=== PATIENT | female | born 1965 | race Caucasian/White ===

== ENCOUNTER → 2017-03-07 | Outpatient (CLI) | payer BC ==
[~2017-03-07] VITALS: Ht 168.9 cm; Wt 61.0 kg
[~2017-03-07] MED LIST: AMLODIPINE BESYL5 MG PO; ANTIVERT25 MG PO; ARYMO ER15 MG PO; CALCIUM 600 +1 EAC4 PO; CITALOPRAM HBR20 MG PO; DELTASONE20 M1 PO; DURAGESIC25 MCG TD; GUMMIES CHILDR1 EACH PO; NEURONTIN300 MG PO; NEURONTIN600 MG PO; NORVASC10 MG PO; ONE DAILY FOR1 EAC1 PO; PERCOCET 5/31 TABLET PO; TRIAMTERENE-HC1 EACH PO; ZOVIRAX800 M1 PO
[2017-03-07 10:01] VITALS: BP 124/67
== END | disposition home or self-care (01) ==
LOC: IVINF 09:27
DX: M81.0 Age-related osteoporosis without current pathological fracture (principal); Z88.0 Allergy status to penicillin; Z88.5 Allergy status to narcotic agent
CPT/HCPCS: J3489

== ENCOUNTER → 2018-05-15 | Outpatient (CLI) | payer BC ==
[~2018-05-15] VITALS: Ht 167.6 cm; Wt 61.3 kg
[~2018-05-15] MED LIST changes: +DYRENIUM 50 MG50 MG PO; +FLEXERIL5 MG PO; +PENNSAID2 GM TP
[2018-05-15 11:52] VITALS: BP 130/84
== END | disposition home or self-care (01) ==
LOC: IVINF 11:00
DX: M81.0 Age-related osteoporosis without current pathological fracture (principal)
CPT/HCPCS: 96365; J3489